=== PATIENT | female | born 1945 | race Two or more races ===

== ENCOUNTER 2018-10-09 09:32 | Inpatient (IN) | payer OTHER ==
[~2018-10-09] VITALS: Ht 152.4 cm; Wt 64.4 kg
[2018-10-09 09:53] VITALS: Ht 152.4 cm; Wt 64.4 kg
[2018-10-09 10:49] LABS: BASOPHIL % 0.4 % (0-2); PLATELET COUNT 235 x10^3mcL (130-400)
[2018-10-09 10:51] LABS: RED CELL DISTRIBUTION WIDTH 15.9 % (11.5-14.5)
[2018-10-09 11:27] LABS: CALCIUM 8.8 mg/dL (8.5-10.1); CARBON DIOXIDE 26.3 mmol/L (21-32); CHLORIDE SERUM 102 mmol/L (98-107); CREATININE SERUM 0.9 mg/dL (0.6-1.0); GLUCOSE SERUM 176 mg/dL (74-106); POTASSIUM SERUM 4.6 mmol/L (3.5-5.1); SODIUM SERUM 137 mmol/L (136-145)
[2018-10-09 11:32] LABS: ALBUMIN 3.6 g/dL (3.4-5.0); ALKALINE PHOSPHATASE 70 U/L (46-116); ALT/SGPT 24 U/L (14-59); AST/SGOT 18 U/L (15-37); BILIRUBIN TOTAL 0.33 mg/dL (0.20-1.00); TOTAL PROTEIN, SERUM 7.3 g/dL (6.4-8.2)
[2018-10-09 16:09] LABS: MAGNESIUM 1.7 mg/dL (1.8-2.4); PHOSPHOROUS 3.6 mg/dL (2.5-4.9)
[2018-10-09 16:13] LABS: CHOLESTEROL/HDL RATIO 2.8
[2018-10-09] MEDS ORDERED: ISOSORBIDE DINI30 M2 PO (16:15)
[2018-10-09] MEDS ORDERED: CARVEDILOL25 M1 PO (16:16)
[2018-10-09] MEDS ORDERED: JANUMET 50-1,01 EACH PO (16:16)
[2018-10-09 16:17] LABS: FREE T4 1.28 ng/dL (0.76-1.46); FREE THYROXINE INDEX 3.1 ug/dL (1.4-4.5); T3 TOTAL 0.92 ng/mL; T4(THYROXINE) 8.5 ug/dL (4.7-13.3)
[2018-10-09] MEDS ORDERED: LEVOTHYROXINE0.05 M2 PO (16:17)
[2018-10-09] MEDS ORDERED: ASPIR 8181 MG PO (16:17)
[2018-10-09] MEDS ORDERED: GABAPENTIN400 M1 PO (16:18)
[2018-10-09] MEDS ORDERED: VITAMIN B121000 MCG PO (16:18)
[2018-10-09] MEDS ORDERED: ATORVASTATIN CA40 M1 PO (16:18)
[2018-10-09] MEDS ORDERED: RANITIDINE HCL150 M1 PO (16:18)
[2018-10-09] MEDS ORDERED: NITROGLYCERIN0.4 MG SL (16:19)
[2018-10-09 16:57] VITALS: BP 222/102
[2018-10-09 18:05] VITALS: BP 131/72
[2018-10-09 21:37] VITALS: BP 133/63
[2018-10-10 03:23] VITALS: BP 139/72
[2018-10-10 05:37] VITALS: BP 158/65
[2018-10-10 06:45] LABS: microscopic required? NO
[2018-10-10 06:48] LABS: CALCIUM 8.5 mg/dL (8.5-10.1); CARBON DIOXIDE 25.8 mmol/L (21-32); CHLORIDE SERUM 105 mmol/L (98-107); CREATININE SERUM 0.8 mg/dL (0.6-1.0); GLUCOSE SERUM 216 mg/dL (74-106); MAGNESIUM 1.7 mg/dL (1.8-2.4); PHOSPHOROUS 3.9 mg/dL (2.5-4.9); POTASSIUM SERUM 3.6 mmol/L (3.5-5.1); SODIUM SERUM 138 mmol/L (136-145)
[2018-10-10 07:00] LABS: urine erythrocyte NEGATIVE (NEGATIVE)
[2018-10-10 07:25] LABS: AMPHETAMINE QUAL UR NONE DETECTED (See below)
[2018-10-10 08:14] LABS: BASOPHIL % 0.4 % (0-2); PLATELET COUNT 234 x10^3mcL (130-400); RED CELL DISTRIBUTION WIDTH 15.2 % (11.5-14.5)
[2018-10-10 09:41] VITALS: BP 179/71
[2018-10-10 13:30] VITALS: BP 124/70
[2018-10-10 13:46] VITALS: BP 154/84
== END 2018-10-10 15:07 | disposition home or self-care (01) | DRG 950 ==
LOC: ED 09:32 → DU 15:00
PROVIDERS: Emergency Medicine; ADMIT Internal Medicine
DX: Z79.84 Long term (current) use of oral hypoglycemic drugs (principal); I16.0 Hypertensive urgency; R07.89 Other chest pain; I50.9 Heart failure, unspecified; I25.10 Atherosclerotic heart disease of native coronary artery without angina pectoris; E11.65 Type 2 diabetes mellitus with hyperglycemia; E03.9 Hypothyroidism, unspecified; E83.42 Hypomagnesemia; I25.2 Old myocardial infarction; Z68.27 Body mass index [BMI] 27.0-27.9, adult; Z95.1 Presence of aortocoronary bypass graft; Z95.5 Presence of coronary angioplasty implant and graft
CPT/HCPCS: 82962; 83880; 84439; J0360; J7030; Q0092; Q9967

== ENCOUNTER 2019-08-23 11:00 | Emergency (ER) | payer OTHER ==
[~2019-08-23] VITALS: Ht 152.4 cm; Wt 60.8 kg
[~2019-08-23 11:00] MED LIST: ASPIR 8181 MG PO; ATORVASTATIN CA40 M1 PO; CARVEDILOL25 M1 PO; GABAPENTIN400 M1 PO; ISOSORBIDE DINI30 M2 PO; JANUMET 50-1,01 EACH PO; LEVOTHYROXINE0.05 M2 PO; NITROGLYCERIN0.4 MG SL; RANITIDINE HCL150 M1 PO; VITAMIN B121000 MCG PO
[2019-08-23 11:18] VITALS: Ht 152.4 cm; Wt 60.8 kg
[2019-08-23 14:31] LABS: BASOPHIL % 0.4 % (0-2); PLATELET COUNT 223 x10^3mcL (130-400); RED CELL DISTRIBUTION WIDTH 14.4 % (11.5-14.5)
[2019-08-23 14:43] LABS: CALCIUM 9.2 mg/dL (8.5-10.1); CARBON DIOXIDE 28.4 mmol/L (21-32); CHLORIDE SERUM 102 mmol/L (98-107); CREATININE SERUM 0.8 mg/dL (0.6-1.0); GLUCOSE SERUM 132 mg/dL (74-106); POTASSIUM SERUM 4.1 mmol/L (3.5-5.1); SODIUM SERUM 138 mmol/L (136-145)
[2019-08-23 14:49] LABS: ALBUMIN 3.7 g/dL (3.4-5.0); ALKALINE PHOSPHATASE 76 U/L (46-116); ALT/SGPT 21 U/L (14-59); AST/SGOT 13 U/L (15-37); BILIRUBIN TOTAL 0.4 mg/dL (0.20-1.00); HDL CHOLESTEROL 37 mg/dL (40-60); TOTAL PROTEIN, SERUM 7.5 g/dL (6.4-8.2)
[2019-08-23 14:50] LABS: CHOLESTEROL 109 mg/dL (<200)
[2019-08-23 15:20] LABS: microscopic required? NO
[2019-08-23 15:31] LABS: urine erythrocyte NEGATIVE (NEGATIVE)
[2019-08-23 16:46] VITALS: BP 185/86
== END 2019-08-23 16:46 | disposition home or self-care (01) ==
LOC: ED 11:00
PROVIDERS: Emergency Medicine
DX: M54.2 Cervicalgia (principal); I10 Essential (primary) hypertension; J06.9 Acute upper respiratory infection, unspecified; E11.9 Type 2 diabetes mellitus without complications; E03.9 Hypothyroidism, unspecified; K21.9 Gastro-esophageal reflux disease without esophagitis; M19.90 Unspecified osteoarthritis, unspecified site; M25.512 Pain in left shoulder; R51 Headache; R39.198 Other difficulties with micturition
CPT/HCPCS: 87804; J0360; J1885; J7030; Q0092

== ENCOUNTER 2020-01-04 10:55 | Emergency (ER) | payer OTHER ==
[~2020-01-04] VITALS: Ht 152.4 cm; Wt 59.0 kg
[2020-01-04 11:12] VITALS: Ht 152.4 cm; Wt 59.0 kg
[2020-01-04 12:33] LABS: BASOPHIL % 0.2 % (0-2); PLATELET COUNT 225 x10^3mcL (130-400)
[2020-01-04 12:35] LABS: RED CELL DISTRIBUTION WIDTH 14.8 % (11.5-14.5)
[2020-01-04 12:44] LABS: CARBON DIOXIDE 23.9 mmol/L (21-32); CHLORIDE SERUM 98 mmol/L (98-107); CREATININE SERUM 0.9 mg/dL (0.6-1.0); GLUCOSE SERUM 159 mg/dL (74-106); POTASSIUM SERUM 4.1 mmol/L (3.5-5.1); SODIUM SERUM 131 mmol/L (136-145)
[2020-01-04 12:48] LABS: ALBUMIN 3.7 g/dL (3.4-5.0); ALKALINE PHOSPHATASE 78 U/L (46-116); ALT/SGPT 22 U/L (14-59); AMYLASE 55 U/L (25-115); AST/SGOT 10 U/L (15-37); BILIRUBIN TOTAL 0.34 mg/dL (0.20-1.00); LIPASE 84 IU/L (73-393); TOTAL PROTEIN, SERUM 7.1 g/dL (6.4-8.2)
[2020-01-04 12:55] LABS: microscopic required? NO
[2020-01-04 13:20] LABS: urine erythrocyte NEGATIVE (NEGATIVE)
[2020-01-04 15:01] VITALS: BP 184/87
== END 2020-01-04 14:00 | disposition short-term general hospital (02) ==
LOC: ED 10:55
PROVIDERS: Emergency Medicine
DX: I62.9 Nontraumatic intracranial hemorrhage, unspecified (principal); I10 Essential (primary) hypertension; E11.9 Type 2 diabetes mellitus without complications; E03.9 Hypothyroidism, unspecified; Z95.1 Presence of aortocoronary bypass graft
CPT/HCPCS: 82962; J0360; J1100; J1953; J2405; J3490; J7030